=== PATIENT | female | born 1965 | race African-American/Black ===

== ENCOUNTER 2021-12-30 10:31 | Emergency (ER) | payer BC, MEDICAID ==
[~2021-12-30] VITALS: Ht 172.7 cm; Wt 73.0 kg
[2021-12-30] MEDS ORDERED: VISCOUS LIDOCAINE 2% 15 ML UDC PO STA (14:17)
[2021-12-30] MEDS ORDERED: MAGNESIUM/ALUMINUM HYDROXIDE/SIMETHICONE 30ML UDC PO STA (14:17)
[2021-12-30] MEDS ORDERED: ONDANSETRON 4MG ODT PO STA (14:17)
[2021-12-30] MEDS ORDERED: FAMOTIDINE 20MG TABLET PO ONE (14:30)
[2021-12-30] MEDS ORDERED: ACETAMINOPHEN 325MG TABLET PO ONE (14:30)
[2021-12-30 14:39] LABS: BASOPHILS % 0.6 % (0.0-2.0); EOSINOPHILS % 1.3 % (0.0-5.0); HEMATOCRIT. 40.9 % (36.0-48.0); HEMOGLOBIN. 13.6 g/dL (12.0-16.0); LYMPHOCYTES % 32.7 % (20.0-50.0); MEAN CORPUSCULAR HEMOGLOBIN 29.3 pg (28.0-32.0); MEAN CORPUSCULAR VOLUME 88.3 fL (81.0-99.0); MEAN PLATELET VOLUME 10.1 fl (7.4-10.4); MONOCYTES % 5.7 % (2.0-8.0); NEUTROPHILS % 59.7 % (40.0-76.0); PLATELET 214 x1000/uL (130-400); RED BLOOD CELL COUNT 4.63 mill/uL (4.2-5.4); RED CELL DISTRIBUTION WIDTH 15.2 % (11.6-14.6)
[2021-12-30 14:47] LABS: CHLORIDE 109 mEq/L (98-107)
[2021-12-30] MEDS ORDERED: FAMO40TA70 MT (15:22)
[2021-12-30] MEDS ORDERED: MAG-55 MT (15:22)
[2021-12-30 16:18] VITALS: BP 119/60
== END 2021-12-30 16:20 | disposition home or self-care (01) ==
LOC: ER 10:31
DX: K29.70 Gastritis, unspecified, without bleeding (principal); M54.9 Dorsalgia, unspecified
CPT/HCPCS: 36415; 71045; 80053; 83690; 85025; 93005; 99285; Q0162